=== PATIENT | female | born 2005 | race Caucasian/White ===

== ENCOUNTER 2023-01-21 17:23 | Outpatient (CLI) | payer BC, SELFPAY ==
[2023-01-21 23:18] LABS: Chlamydia DNA Amplified* NOT DETECTED (No Detected); GC DNA Amplified* NOT DETECTED (No Detected)
== END 2023-01-21 17:24 | disposition home or self-care (01) ==
LOC: NFLDUCREF 17:23
PROVIDERS: Visit Provider Nurse Practitioner Family
DX: N93.9 Abnormal uterine and vaginal bleeding, unspecified (principal)
CPT/HCPCS: 87491; 87591